=== PATIENT | male | born 1985 | race Caucasian/White ===

== ENCOUNTER 2020-02-28 10:33 | Emergency (ER) | payer OTHER ==
[~2020-02-28] VITALS: Wt 77.1 kg
[2020-02-28] MEDS ORDERED: ANTIBIOTIC28.4 GM T (13:32)
[2020-02-28] MEDS ORDERED: PERCOCET 5-3251 EACH PO (14:17)
== END 2020-02-28 14:02 | disposition home or self-care (01) ==
LOC: ED 10:33
DX: T23.022A Burn of unspecified degree of single left finger (nail) except thumb, initial encounter (principal); X08.8XXA Exposure to other specified smoke, fire and flames, initial encounter; Y93.89 Activity, other specified; Y92.89 Other specified places as the place of occurrence of the external cause; Y99.8 Other external cause status